=== PATIENT | female | born 1945 | race Caucasian/White ===

== ENCOUNTER 2024-07-29 10:05 | Day surgery (SDC) | payer MEDICARE ==
[~2024-07-29] VITALS: Ht 154.9 cm; Wt 57.4 kg
[~2024-07-29 10:05] MED LIST: CALC600T60 PO; LR 1,000 ML IV SCH; MAGN400T2 PO; OMEP-173 PO; SYNT88TA2 PO
[2024-07-29] MEDS: CYCLOPENTOLATE 1% OPHTH SOLN 2ML BTL OS SCH (12:03)
[2024-07-29] MEDS: PHENYLEPHRINE 2.5% OPHTH SOL 2ML OS SCH (12:03)
[2024-07-29] MEDS: TETRACAINE 0.5% OPHTH SOLN 4ML OS SCH (12:03)
[2024-07-29] MEDS: FLURBIPROFEN 0.03% OPHTH SOLN 2.5 ML OS SCH (12:03)
[2024-07-29] MEDS: LIDOCAINE 1% SDV 5ML VIAL As Ordered ONE (14:05)
[2024-07-29] MEDS ORDERED: propofoL 200 MG/20 ML VIAL As Ordered ONE (14:13)
[2024-07-29] MEDS ORDERED: LIDOCAINE 2% 100MG/5ML SDV (FOR ANES.) As Ordered ONE (14:13)
[2024-07-29] MEDS: CEFUROXIME 1MG/0.1ML INTRACAMERAL INJ As Ordered ONE (14:14)
[2024-07-29 14:23] VITALS: BP 173/77; TEMP 97.3; O2SAT 99
== END 2024-07-29 14:49 | disposition home or self-care (01) ==
LOC: M SDC 10:05
PROVIDERS: ATTEND Ophthalmology
DX: H25.12 Age-related nuclear cataract, left eye (principal); H25.042 Posterior subcapsular polar age-related cataract, left eye; E03.9 Hypothyroidism, unspecified; K21.9 Gastro-esophageal reflux disease without esophagitis; F41.9 Anxiety disorder, unspecified; Z88.2 Allergy status to sulfonamides; Z87.891 Personal history of nicotine dependence
CPT/HCPCS: 66984; J0697; V2632

== ENCOUNTER 2025-02-03 11:32 | Day surgery (SDC) | payer MEDICARE ==
[~2025-02-03] VITALS: Ht 154.9 cm; Wt 56.5 kg
[~2025-02-03 11:32] MED LIST changes: +ACET32TAB PO; +CYCLOPENTOLATE 1% OPHTH SOLN 2 ML BTL OD SCH; +FLURBIPROFEN 0.03% OPHTH SOLN 2.5 ML OD SCH; +PHENYLEPHRINE 2.5% OPHTH SOL 2ML OD SCH; +TETRACAINE 0.5% OPHTH SOLN 4ML OD SCH
[2025-02-03] MEDS: TETRACAINE 0.5% OPHTH SOLN 4ML OD SCH (12:51)
[2025-02-03] MEDS: PHENYLEPHRINE 2.5% OPHTH SOL 2ML OD SCH (12:52)
[2025-02-03] MEDS: FLURBIPROFEN 0.03% OPHTH SOLN 2.5 ML OD SCH (12:53)
[2025-02-03] MEDS: CYCLOPENTOLATE 1% OPHTH SOLN 2 ML BTL OD SCH (12:53)
[2025-02-03] MEDS ORDERED: MIDAZOLAM INJ 2 MG/2 ML VIAL As Ordered ONE (13:42)
[2025-02-03] MEDS: LIDOCAINE 1% SDV 5 ML VIAL As Ordered ONE (14:05)
[2025-02-03] MEDS: CEFUROXIME 1 MG/0.1 ML INTRACAMERAL INJ As Ordered ONE (14:05)
[2025-02-03 14:29] VITALS: BP 142/65; TEMP 97.7; O2SAT 97
== END 2025-02-03 14:43 | disposition home or self-care (01) ==
LOC: M SDC 11:32
PROVIDERS: ATTEND Ophthalmology
DX: H25.9 Unspecified age-related cataract (principal); Z79.899 Other long term (current) drug therapy; Z87.891 Personal history of nicotine dependence; Z88.1 Allergy status to other antibiotic agents; Z88.2 Allergy status to sulfonamides; Z91.09 Other allergy status, other than to drugs and biological substances; Z91.030 Bee allergy status; Z96.1 Presence of intraocular lens; Z98.42 Cataract extraction status, left eye
CPT/HCPCS: 66984; J0697; J2250; J3010; V2632